=== PATIENT | male | born 1990 ===

== ENCOUNTER 2019-11-08 08:02 | Emergency (ER) | payer SELFPAY ==
--- NOTE | 2019-11-08 08:22 | EDM.PDOC ---
ED HPI GENERAL MEDICAL PROBLEM - General Chief Complaint: Skin Complaint Stated Complaint: SPLINTER IN [id number] Time Seen by Provider: 11/08/19 08:12 Source of Information: Reports: Patient History Limitations: Reports: No Limitations - History of Present Illness INITIAL COMMENTS - FREE TEXT/NARRATIVE: Is a 29-year-old male is complaining of having right thumb pain after he got a splinter in his distal thumb approximately 1 month ago. Patient states initially was very tender painful to light touch. He then treated the finger for several days with peroxide and took a needle and try to remove a foreign body. Patient denies getting any foreign body out he has had no increase redness swelling or lymphangitis to the thumb. Symptoms are dramatically improved but he still has some tenderness in the area. Is any fever chills. He denies any pus or discharge from the area. To his finger looks very raw and erythematous for approximately 1 mm x 2 mm area. I see no indication of infection currently. Duration: Week(s): (4 weeks ago), Improving Quality: Reports: Ache Severity: Mild Improves with: Reports: None Worsens with: Reports: None Associated Symptoms: Reports: No Other Symptoms - Related Data Allergies Allergy/AdvReac Type Severity Reaction Status Date / Time shellfish derived Allergy Anaphylactic Verified 11/08/19 08:16 Shock Home Meds: Home Meds Cephalexin [Keflex] 500 mg PO BID #20 capsule 11/08/19 [Rx] ED ROS GENERAL - Review of Systems Review Of Systems: Comprehensive ROS is negative, except as noted in HPI. ED EXAM, SKIN/RASH Exam: See Below Exam Limited By: No Limitations General Appearance: Alert Head: Atraumatic Neck: Normal Inspection Respiratory/Chest: No Respiratory Distress Extremities: No: Non-Tender Neurological: Alert, Oriented Psychiatric: Normal Affect Skin: Warm, Erythema (Tip of right thumb small area only. No indication of infection.) Location, Skin: Upper Extremity, Right Associated features: Tenderness. No: Warmth, Swelling, Lymphangitis, Inflammation Lymphatic: No Adenopathy Course - Vital Signs Text/Narrative:: I am placing the patient on a one-week course of Keflex. I am encouraging him to use warm soaks 4 times a day and ibuprofen as needed. To return to emergency department if worse. Follow-up with PCP or general surgeon if not improving. Departure - Departure Time of Disposition: 08:33 Disposition: Home, Self-Care 01 Condition: Good Clinical Impression: Foreign body (FB) in soft tissue - Discharge Information Referrals: PCP,None [Primary Care Provider] - Carla Wilson MD [Physician] - Additional Instructions: Warm compresses 4 times a day. Neosporin topically twice a day. Ibuprofen as needed. Follow-up with PCP or general surgeon if not improving. Return to ER if worse.
== END 2019-11-08 08:51 | disposition home or self-care (01) ==
LOC: MW.ED 08:02
CPT/HCPCS: 99282

== ENCOUNTER 2019-12-31 22:52 | Emergency (ER) | payer SELFPAY | END 2019-12-31 23:05 | disposition left against medical advice (07) | LOC: MW.ED 22:52 | DX: Z53.21 Procedure and treatment not carried out due to patient leaving prior to being seen by health care provider (principal) ==